=== PATIENT | female | born 2005 | race Hispanic/Latino ===

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

== ENCOUNTER 2024-02-09 13:56 | Inpatient (IN) | payer MEDICAID, SELFPAY ==
[2024-02-09 14:21] VITALS: BMI 31.8
[2024-02-09] MEDS ORDERED: hydrALAZINE 20 MG/ML VIAL SLOW IVP PRN ×2 (14:23→15:30)
[2024-02-09 14:32] LABS: Bilirubin Neg (Negative); Blood, Urine Negative (Negative); Clarity Slightly Cloudy (Clear); Glucose, Urine (Dipstick) 250 mg/dL (Negative); Ketone, Urine 15 mg/dL (Negative); Leukocyte 25 (Negative); Nitrite Negative (Negative); Protein, Urine (Dipstick) 15 mg/dl (Neg-Trace); Specific Gravity, Urine 1.015 (1.005-1.030)
[2024-02-09 14:49] LABS: Fetal Membranes Rupture RUPTURE DETECTED (No Rupture)
[2024-02-09 14:52] LABS: Bacteria/HPF 4+ HPF (None Seen); CAUTI Indications for Culture Pregnancy; RBC/HPF 0-3 HPF (0-3); Squamous Epithelial Greater than 50 HPF (0-3)
[2024-02-09 14:53] LABS: Urine Culture Reflex Yes Yes
[2024-02-09] MEDS ORDERED: fentaNYL 50 mcg/mL 1 mL Vial SLOW IVP PRN (15:30)
[2024-02-09] MEDS ORDERED: Lidocaine 1% (PF) 30 ML VIAL SC PRN (15:30)
[2024-02-09] MEDS ORDERED: Diphenoxylate HCl/Atropine Tablet PO PRN (15:30)
[2024-02-09] MEDS ORDERED: Methylergonovine 0.2 MG/ML VIAL IM PRN (15:30)
[2024-02-09] MEDS ORDERED: HYDROcodone/Acetaminophen 5/325 mg Tablet PO PRN (15:30)
[2024-02-09] MEDS ORDERED: Oxytocin 30 units/NS 500 ML 500 ML IV SCH ×2 (15:30)
[2024-02-09] MEDS ORDERED: Acetaminophen 500 MG TAB PO PRN (15:30)
[2024-02-09] MEDS ORDERED: Carboprost 250 MCG/ML AMP IM PRN (15:30)
[2024-02-09] MEDS ORDERED: Tranexamic Acid 1,000 MG/10 ML VIAL IVP PRN (15:30)
[2024-02-09] MEDS ORDERED: Misoprostol 200 MCG TAB PR PRN (15:30)
[2024-02-09] MEDS ORDERED: Promethazine HCl 25 MG/ML VIAL IM PRN (15:30)
[2024-02-09] MEDS: Oxytocin 30 units/NS 500 ML 500 ML IV SCH (16:28)
[2024-02-09] MEDS: Lactated Ringer's 1,000 ML IV SCH (16:28)
[2024-02-09] MEDS: Ampicillin 2 GM in Sodium Chloride 0.9% 100 ML IVPB SCH (16:28)
[2024-02-09 16:39] LABS: Hematocrit 40.3 % (34.9-44.5); Hemoglobin 13.3 g/dL (12.0-15.5); Mean Corpuscular Hemoglobin 27.7 pg (27.0-33.0); Mean Platelet Volume 11.6 fL (7.4-10.4); Platelet Count 188 10x3/uL (150-450); RBC Distribution Width 14.2 % (11.5-14.5); White Blood Cell (WBC) Count 8.2 10x3/uL (3.5-10.5)
[2024-02-09 17:08] LABS: Syphilis Antibody Nonreactive (Nonreactive); Syphilis Antibody Index 0.04 S/CO (<1.00 Non-Reactive)
[2024-02-09 17:10] LABS: HBsAg Index 0.28 S/CO (0-0.99); Hep B Surf Ag - L&D Non-Reactive S/CO (NonReactive)
[2024-02-10] MEDS: Ondansetron PF 4 MG/2 ML Vial IVP PRN (05:45)
[2024-02-10] MEDS: Ibuprofen 800 MG TAB PO PRN (07:31)
[2024-02-10] MEDS ORDERED: Ondansetron PF 4 MG/2 ML Vial IVP PRN (09:18)
[2024-02-10] MEDS ORDERED: diphenhydrAMINE 25 MG CAP PO PRN (09:18)
[2024-02-10] MEDS ORDERED: Promethazine HCl 25 MG/ML VIAL IM PRN (09:18)
[2024-02-10] MEDS ORDERED: hydrALAZINE 20 MG/ML VIAL SLOW IVP PRN (09:18)
[2024-02-10] MEDS ORDERED: Benzocaine-Menthol 82.5 ML CAN TOP PRN (09:18)
[2024-02-10] MEDS ORDERED: Lanolin Ointment 7 GM TUBE TOP PRN (09:18)
[2024-02-10] MEDS ORDERED: Bisacodyl 10 MG SUPP PR PRN (09:18)
[2024-02-10] MEDS ORDERED: HYDROcodone/Acetaminophen 5/325 mg Tablet PO PRN (09:18)
[2024-02-10] MEDS ORDERED: Milk Of Magnesia 30 ML UDCUP PO PRN (09:18)
[2024-02-10] MEDS: Docusate 100 MG CAP PO SCH ×2 (11:35→21:33)
[2024-02-10] MEDS: Prenatal Vitamin 1 TAB PO SCH (11:36)
[2024-02-10] MEDS: Ibuprofen 800 MG TAB PO SCH (14:14)
[2024-02-10] MEDS: Ferrous Sulfate 325 MG TAB PO SCH (14:15)
[2024-02-11] MEDS: cefTRIAXone\\ROCEPHIN 2 GM in Sodium Chloride 0.9% 100 ML IVPB SCH (01:16)
[2024-02-11] MEDS: Prenatal Vitamin 1 TAB PO SCH (13:55)
[2024-02-12] MEDS: Boostrix 0.5 ML (Tdap) VIAL (>/=7 yrs of age) IM ONE (07:57)
[2024-02-12 11:53] VITALS: BP 108/55; TEMP 98.9
== END 2024-02-12 18:00 | disposition home or self-care (01) | DRG 807 ==
LOC: CSHLD/OP 13:56 → CSHLD 15:12 → CSHPP 02-10 08:57
PROVIDERS: ADMIT Family Medicine; ATTEND Family Medicine
PROC: 10E0XZZ Delivery of Products of Conception, External Approach (ICD-10-PCS; principal; 2024-02-09)
PROC: 0UQGXZZ Repair Vagina, External Approach (ICD-10-PCS; 2024-02-09)
PROC: 0HQ9XZZ Repair Perineum Skin, External Approach (ICD-10-PCS; 2024-02-09)
DX: O42.913 Preterm premature rupture of membranes, unspecified as to length of time between rupture and onset of labor, third trimester (principal); Z37.0 Single live birth; Z3A.36 36 weeks gestation of pregnancy; O70.0 First degree perineal laceration during delivery
CPT/HCPCS: 36416; 81001; 84112; 85027; 86780; 86850; 86900; 86901; 87077; 87086; 87186; 87340; 88307; 99285; J0290; J0696; J1580; J2405; J2590; J7120